=== PATIENT | male | born 1945 | race Caucasian/White ===

== ENCOUNTER → 2016-09-26 | Outpatient (CLI) | payer MEDICARE, BC ==
--- NOTE | 2016-09-26 15:53 | KCIC ---
PROCEDURE MRI lumbar spine without contrast. HISTORY Low back pain and left lower extremity numbness for several months, no known injury. TECHNIQUE Sagittal T1, sagittal T2, sagittal STIR, axial T1, and axial T2 sequences are provided. COMPARISON None. FINDINGS There is no malalignment. There is no worrisome marrow lesion. There is endplate edema which is minimal and appears degenerative in the posterior inferior corner of L2 and L3. There is diffuse disc desiccation. There is narrowing of disc height at L5-S1. There are probably vacuum discs at L4-L5 and L5-S1. Conus medullaris is normal in signal intensity and in position. Subcutaneous edema is noted. Parapelvic cyst or extrarenal pelvis is noted in the left kidney. Numbering system assumes 5 lumbar type vertebral bodies. Findings by individual level are as follows: L1-L2: There is no canal or foraminal compromise. L2-L3: Disc bulge and mild facet and ligamentum flavum hypertrophy are noted. There is no canal stenosis. There is no foraminal narrowing. L3-L4: Mild disc bulge and mild facet and ligamentum flavum hypertrophy are noted. There is no canal stenosis. There is mild foraminal narrowing. L4-L5: In addition to a diffuse disc bulge there is a left paracentral extrusion type herniation migrating inferiorly measuring 9 millimeters craniocaudal by 10 millimeters transverse by 4 millimeters AP. There is moderate facet hypertrophy and there is ligamentum flavum hypertrophy. Midline AP diameter of the thecal sac is narrowed to 6 millimeters. There is lateral recess narrowing which is greater on the left. There is mild bilateral foraminal narrowing. L5-S1: Disc osteophyte complex and facet hypertrophy are noted. Midline AP diameter of the thecal sac is narrowed to 8 millimeters. There is lateral recess narrowing bilaterally which is mild to moderate. Foraminal narrowing is [id number]. IMPRESSION Degenerative disc disease and facet and ligamentum flavum hypertrophy are noted in the lumbar spine, findings are greatest at L4-L5. Electronically signed by: Dirk Van MD (Sep 26, 2016 15:52:08)
== END | disposition home or self-care (01) ==
LOC: KCIC MRI 14:42
PROVIDERS: ATTEND Physician Assistant Medical
DX: M47.896 Other spondylosis, lumbar region (principal)
CPT/HCPCS: 72148